=== PATIENT | female | born 1965 | race Caucasian/White ===

== ENCOUNTER 2018-10-29 02:59 | Emergency (ER) | payer BC ==
[2018-10-29] MEDS ORDERED: Sodium Chloride 0.9% 1,000 ML IV ONE (03:54)
--- NOTE | 2018-10-29 07:02 | EDM.PDOC ---
ED HPI GENERAL MEDICAL PROBLEM - General Chief Complaint: Syncope Stated Complaint: [facility] Time Seen by Provider: 10/29/18 03:53 Source of Information: Reports: Patient, Family History Limitations: Reports: No Limitations - History of Present Illness INITIAL COMMENTS - FREE TEXT/NARRATIVE: This patient arrived by EMS. She said that she awoke and had a very bad stomach ache and felt nauseated. She went to the bathroom and said that she passed out. Her heard her fall and went in and found that she had vomited several times and she appeared to be unresponsive for a short while. She says now her abdominal pain is gone but she still feels a little bit nauseated but doesn't need any medication for. She said last night they had some kind of a grilled meat and that sometimes she gets sick after eating some stuff it's been grilled over charcoal. Her did not get sick for many of the food that was eaten. She doesn't know how she might of gotten any food poisoning. She hasn't had any diarrhea. Treatments ENGINEERING ILLUSTRATOR: Reports: Other (see below) Other Treatments ENGINEERING ILLUSTRATOR: none Epigastric Pain Score (Numeric/FACES): 3 - Related Data Allergies Allergy/AdvReac Type Severity Reaction Status Date / Time No Known Allergies Allergy Verified 10/29/18 03:12 Home Meds: Home Meds NK [No Known Home Meds] 10/29/18 [History] Past Medical History Other Cardiovascular History: echo security monitor for a couple days. VP SITE History: Reports: - Past Surgical History Other Musculoskeletal Surgeries/Procedures:: Lumbar infusion Social & Family History - Tobacco Use Smoking Status *Q: Never Smoker Second Hand Smoke Exposure: No - Caffeine Use Caffeine Use: Reports: Coffee - Recreational Drug Use Recreational Drug Use: No ED ROS GENERAL - Review of Systems Review Of Systems: See Below Constitutional: Reports: No Symptoms HEENT: Reports: No Symptoms Respiratory: Reports: No Symptoms Cardiovascular: Reports: No Symptoms Endocrine: Reports: No Symptoms GI/Abdominal: Reports: Abdominal Pain, Vomiting : Reports: No Symptoms Musculoskeletal: Reports: No Symptoms Skin: Reports: No Symptoms Neurological: Reports: Syncope Psychiatric: Reports: No Symptoms Hematologic/Lymphatic: Reports: No Symptoms - Physical Exam Exam: See Below Exam Limited By: No Limitations General Appearance: Alert, WD/WN, No Apparent Distress Eye Exam: Bilateral Eye: Normal Inspection Throat/Mouth: Normal Oropharynx Head Exam: Atraumatic Neck: Normal Inspection Respiratory/Chest: Lungs Clear Cardiovascular: Regular Rate, Rhythm, No Murmur GI/Abdominal: Normal Bowel Sounds, Soft, Non-Tender Neuro Exam (Abbreviated): Alert, Oriented, CN II-XII Intact, Normal Cognition, Normal Gait, No Motor/Sensory Deficits Extremities: Normal Inspection, No Pedal Edema Psychiatric: Normal Affect Skin Exam: Warm, Dry Course - Vital Signs Last Recorded V/S: Last Vital Signs Temp 36.1 C 10/29/18 04:00 Pulse 67 10/29/18 06:08 Resp 12 10/29/18 06:08 BP 108/68 10/29/18 06:08 Pulse Ox 98 10/29/18 06:08 - Orders/Labs/Meds Orders: Active Orders 24 hr Category Date Time Status EKG Documentation Completion [RC] ASDIRECTED Care 10/29/18 03:40 Active EKG 12 Lead [EK] Routine Ther 10/29/18 03:39 Ordered Labs: Laboratory Tests 10/29/18 10/29/18 10/29/18 Range/Units 04:10 04:10 06:13 WBC 13.2 H (4.5-11.0) K/uL RBC 4.57 (3.30-5.50) M/uL Hgb 13.8 (12.0-15.0) g/dL Hct 41.1 (36.0-48.0) % MCV 90 (80-98) fL MCH 30 (27-31) pg MCHC 34 (32-36) % Plt Count 317 (150-400) K/uL Neut % (Auto) 78 H (36-66) % Lymph % (Auto) 10 L (24-44) % [place] % (Auto) 10 H (2-6) % Eos % (Auto) 1 L (2-4) % Baso % (Auto) 0 (0-1) % Sodium 141 (140-148) mmol/L Potassium 4.0 (3.6-5.2) mmol/L Chloride 105 (100-108) mmol/L Carbon Dioxide 27 (21-32) mmol/L Anion Gap 8.7 (5.0-14.0) mmol/L BUN 18 (7-18) mg/dL Creatinine 0.7 (0.6-1.0) mg/dL Est Cr Clr Drug Dosing 75.20 mL/min Estimated GFR (MDRD) > 60 (>60) Glucose 97 (74-106) mg/dL Calcium 8.9 (8.5-10.1) mg/dL Total Bilirubin 0.4 (0.2-1.0) mg/dL AST 21 (15-37) U/L ALT 20 (12-78) U/L Alkaline Phosphatase 57 (46-116) U/L Troponin I < 0.017 < 0.017 (0.000-0.056) ng/mL Total Protein 6.8 (6.4-8.2) g/dL Albumin 3.3 L (3.4-5.0) g/dL Globulin 3.5 (2.3-3.5) g/dL Albumin/Globulin Ratio 0.9 L (1.2-2.2) Meds: Medications Discontinued Medications Generic Name Dose Route Start Last Admin Trade Name Freq PRN Reason Stop Dose Admin Sodium Chloride 1,000 mls @ 999 mls/hr 10/29/18 03:54 10/29/18 04:14 Normal Saline IV 10/29/18 04:54 999 mls/hr .BOLUS ONE Administration - Re-Assessments/Exams Free Text/Narrative Re-Assessment/Exam: 10/29/18 06:58 Initial EKG showed sinus rhythm at 86 bpm some borderline T-wave abnormalities. Patient was hydrated with 1 L of normal saline. She's had 2 negative troponins by about 2 hours. We've had her stand and walk around in the ER and her blood pressure has remained stable. She's no longer having any kind of nausea or abdominal pain Departure - Departure Time of Disposition: 07:00 Disposition: Home, Self-Care 01 Condition: Fair Clinical Impression: Vasovagal syncope - Discharge Information Referrals: PCP,None [Primary Care Provider] - Additional Instructions: Your fainting spell was something called vasovagal syncope which just means that you passed out because her heart rate probably slow down and your blood pressure dropped and that would all be as a reaction to the abdominal cramping that you were having. The sudden nature of the abdominal cramps and vomiting makes me think that she might of had some staph food poisoning. The way that works is that a little tiny bit of staff can begin to grow on one little piece of food and you happen to be the unlikely person that got that small portion. That's why one person can get staph food poisoning and nobody else has any symptoms. This is pretty common and the reaction to it can be pretty severe but it is over with very quickly. There is no evidence that you had any kind of heart attack or other cardiac event. It would be best to remain pretty sedentary for the rest of the day and drink plenty of liquids and after that you can continue your usual activities - My Orders Last 24 Hours: My Active Orders 10/29/18 03:39 EKG 12 Lead [EK] Routine 10/29/18 03:40 EKG Documentation Completion [RC] ASDIRECTED - Assessment/Plan Last 24 Hours: My Active Orders 10/29/18 03:39 EKG 12 Lead [EK] Routine 10/29/18 03:40 EKG Documentation Completion [RC] ASDIRECTED
== END 2018-10-29 07:20 | disposition home or self-care (01) ==
LOC: JP.ED 02:59
DX: R55 Syncope and collapse (principal)
CPT/HCPCS: 36415; 80053; 84484; 85025; 93005; 96360; 99284; J7030